=== PATIENT | male | born 1960 | race Caucasian/White ===

== ENCOUNTER 2018-02-17 16:43 | Outpatient (CLI) | payer OTHER | END 2018-02-17 16:44 | disposition short-term general hospital (02) | LOC: EMS 16:43 | PROVIDERS: ATTEND Surgery | DX: S01.111A Laceration without foreign body of right eyelid and periocular area, initial encounter (principal); W11.XXXA Fall on and from ladder, initial encounter; Y93.H9 Activity, other involving exterior property and land maintenance, building and construction; Y92.008 Other place in unspecified non-institutional (private) residence as the place of occurrence of the external cause | CPT/HCPCS: A0425; A0427 ==

== ENCOUNTER 2018-02-18 14:25 | Outpatient (CLI) | payer OTHER ==
--- NOTE | 2018-02-18 15:10 | XRAY Report ---
FOUR VIEW RIGHT WRIST: 02/18/2018 CLINICAL INDICATION: Trauma. FINDINGS: AP, lateral, oblique, scaphoid views of the right wrist demonstrate no evidence of acute fracture or dislocation. Osteoarthritis is present, worst in the first carpometacarpal joint. No foreign body is seen in the soft tissues. IMPRESSION: OSTEOARTHRITIS. NO EVIDENCE OF ACUTE FRACTURE. TD: 02/18/2018 15:10
== END 2018-02-18 14:26 | disposition home or self-care (01) ==
LOC: DI 14:25
PROVIDERS: ATTEND Nurse Practitioner Family
DX: M25.531 Pain in right wrist (principal); M19.031 Primary osteoarthritis, right wrist

== ENCOUNTER 2020-09-04 17:20 | Outpatient (CLI) | payer OTHER | END 2020-09-04 17:21 | disposition EMS.NT | LOC: EMS 17:20 | PROVIDERS: ATTEND Surgery | DX: R47.81 Slurred speech (principal); R41.82 Altered mental status, unspecified ==

== ENCOUNTER → 2020-09-04 | Emergency (ER) | payer OTHER | END | disposition left against medical advice (07) | LOC: ED 18:38 | DX: Z53.21 Procedure and treatment not carried out due to patient leaving prior to being seen by health care provider (principal) ==

== ENCOUNTER 2020-09-21 08:48 | Outpatient (CLI) | payer OTHER ==
--- NOTE | 2020-09-21 15:56 | Ultrasound Report ---
PROCEDURE: Carotid Doppler Complete INDICATIONS: ATAXIC GAIT, TRANSIENT CEREBRAL ISCHEMIA TECHNIQUE: Color and pulse Doppler interrogation was performed of both carotid systems, with image documentation and velocity measurements. COMPARISON: None. FINDINGS: Right side: Common carotid artery peak systolic velocity: 97 cm/sec. Internal carotid artery peak systolic velocity: 83 cm/sec. Internal carotid artery end diastolic velocity: 33 cm/sec. External carotid artery peak systolic velocity: 112 cm/sec. ICA/CCA peak systolic ratio: 0.86 . Swann scale imaging description: Minimal plaque at the bifurcation. Percent internal carotid artery stenosis: Less than 50% . Vertebral artery: Flow direction is antegrade. Left side: Common carotid artery peak systolic velocity: 91 cm/sec. Internal carotid artery peak systolic velocity: 74 cm/sec. Internal carotid artery end diastolic velocity: 27 cm/sec. External carotid artery peak systolic velocity: 98 cm/sec. ICA/CCA peak systolic ratio: 0.81 . Swann scale imaging description: No visualized plaque. Percent internal carotid artery stenosis: No hemodynamically significant stenosis. . Vertebral artery: Flow direction is antegrade. IMPRESSION: 1. Less than 50% stenosis of the right internal carotid artery. The estimate of stenosis included in the report of the imaging study was calculated using the NASCET method Reviewed by: Justine Johnson MD on 09/21/2020 3:55 PM PST Approved by: Justine Johnson MD on 09/21/2020 3:55 PM PST Station ID: [id number]
== END 2020-09-21 08:49 | disposition home or self-care (01) ==
LOC: DI 08:48
PROVIDERS: ATTEND Family Medicine
DX: G45.9 Transient cerebral ischemic attack, unspecified (principal)
CPT/HCPCS: 93880

== ENCOUNTER 2020-09-25 09:15 | Outpatient (CLI) | payer OTHER ==
--- NOTE | 2020-09-27 16:36 | MRI Report ---
PROCEDURE: Brain W/O INDICATIONS: ATAXIC GAIT TECHNIQUE: Noncontrast axial T1 spin echo, axial T2 fast spin echo, sagittal and axial FLAIR, coronal T2 fast sp in echo, axial gradient echo, axial diffusion and ADC through the brain. COMPARISON: None. FINDINGS: Image quality: Excellent. CSF Spaces: Basal cisterns are patent. No extra-axial fluid collections. Ventricles are normal in size and shape. Brain: No intracranial masses or hemorrhage. Swann/white matter interface is normal. Brainstem appe ars normal. Diffusion-weighted images demonstrate no acute ischemic insult. No chronic ischemic ins ults. Normal intravascular flow voids are present. Minimal scattered areas of periventricular and s ubcortical white matter hyperintensities are noted. Skull and face: Calvarium has normal marrow signal. Orbits appear normal. Sinuses: Sinuses mild pansinus mucosal thickening is present. There is a plasia of the right frontal sinus. IMPRESSION: 1. No acute intracranial process. 2. Minimal scattered periventricular and subcortical white matter hyperintensity suggestive of early changes of chronic microvascular ischemia. Reviewed by: Justine Johnson MD on 09/27/2020 4:35 PM PST Approved by: Justine Johnson MD on 09/27/2020 4:35 PM PST Station ID: [id number]
== END 2020-09-25 09:16 | disposition home or self-care (01) ==
LOC: DI 09:15
PROVIDERS: ATTEND Family Medicine
DX: R26.0 Ataxic gait (principal)
CPT/HCPCS: 70551

== ENCOUNTER 2021-02-17 12:43 | Outpatient (CLI) | payer OTHER ==
--- NOTE | 2021-02-17 18:25 | XRAY Report ---
PROCEDURE: Thoracic Spine 2 View INDICATIONS: PAIN IN THORACIC SPINE AND LOW BACK PAIN TECHNIQUE: 2 views of the thoracic spine were acquired. COMPARISON: X-ray lumbar spine 02/17/2021 FINDINGS: Bones: No fractures or dislocations. No suspicious bony lesions. 12 pairs of ribs are noted, and a ppear intact where visualized. Multilevel generative disc space narrowing is present. Scattered ante rior osteophytes partially bridging particularly along the anterior aspect of the upper thoracic spin e are identified. Soft tissues: No paravertebral stripe thickening. IMPRESSION: Multilevel degenerative changes including disc space narrowing and anterior osteophytes as above. Reviewed by: Justine Johnson MD on 02/17/2021 5:24 PM CLIFF Approved by: Justine Johnson MD on 02/17/2021 5:24 PM CLIFF Station ID: [id number]
--- NOTE | 2021-02-17 18:25 | XRAY Report ---
PROCEDURE: Lumbar Spine 2 View INDICATIONS: PAIN IN THORACIC SPINE AND LOW BACK PAIN TECHNIQUE: 2 views of the lumbar spine were acquired. COMPARISON: X-ray thoracic spine 02/17/2021 FINDINGS: Bones: 5 [id number] vertebrae are present. There is trace retrolisthesis of L1 on L2, L2 on L3 , L3 on L4, L5 on S1, trace anterolisthesis of L5 on S1. There is moderate to severe disc space narro wing at L5-S1, mild L3-4, L4-5. Severe foraminal narrowing is noted at L5-S1, mild L4-5. No vertebral body compression fractures. No suspicious bony lesions. Soft tissues: Overlying bowel gas pattern is normal. No suspicious soft tissue calcifications. IMPRESSION: Degenerative changes most severe at L5-S1. If there is concern for further evaluation of foraminal narrowing and potential nerve root compression, MRI is recommended. Reviewed by: Justine Johnson MD on 02/17/2021 5:23 PM CLIFF Approved by: Justine Johnson MD on 02/17/2021 5:23 PM CLIFF Station ID: [id number]
== END 2021-02-17 12:44 | disposition home or self-care (01) ==
LOC: DI.S 12:43
PROVIDERS: ATTEND Nurse Practitioner Family
DX: M54.5 Low back pain (principal); M54.6 Pain in thoracic spine; M47.817 Spondylosis without myelopathy or radiculopathy, lumbosacral region; M47.814 Spondylosis without myelopathy or radiculopathy, thoracic region; M48.04 Spinal stenosis, thoracic region